=== PATIENT | male | born 1990 | race Caucasian/White ===

== ENCOUNTER 2016-11-04 19:19 | Emergency (ER) | payer OTHER ==
[2016-11-04 19:00] LABS: INFLUENZA A NEG (NEG); INFLUENZA B NEG (NEG)
[~2016-11-04 19:19] MED LIST: NO MEDICATIONS
== END 2016-11-04 19:30 | disposition home or self-care (01) ==
LOC: SED 19:19
PROVIDERS: Nurse Practitioner
DX: J06.9 Acute upper respiratory infection, unspecified (principal); F17.210 Nicotine dependence, cigarettes, uncomplicated
CPT/HCPCS: 87651; 87804; 87880; 99283